=== PATIENT | male | born 2000 | race Caucasian/White ===

== ENCOUNTER 2023-08-01 12:26 | Emergency (ER) | payer OTHER, SELFPAY ==
[2023-08-01] VITALS (33 sets, daily range): BP systolic 116–152; BP diastolic 54–80; PULSE 65–89; RESP 24; TEMP 36.4; O2SAT 94–100
--- NOTE | 2023-08-01 12:30 | DI.CT_ITS ---
Exam(s) CT THORACIC LUMBAR SPINE WO CT CHEST WO EXAM: CT CHEST WO CLINICAL HISTORY: L upper rib pain, posterior TECHNIQUE: Imaging Protocol: Axial computed tomography images with coronal and sagittal reformatted images were created and reviewed CONTRAST MATERIAL: Noncontrast COMPARISON: CT CT THORACIC LUMBAR SPINE WO from 08/01/2023 FINDINGS: Noncontrast chest CT: Pulmonary parenchyma: Mild patchy densities in the left lower lobe and posterior right upper lobe. F indings could represent pneumonitis versus pulmonary contusion. No dominant measurable mass. Tracheobronchial tree: No bronchiectasis or mucous plugging. Mediastinum and Bridget: No dominant adenopathy or fluid collection. Pleura: No effusion. No pneumothorax. Heart: The heart is not dilated. No coronary artery calcifications are seen. No pericardial effusio n. Aorta: Thoracic aorta non-dilated. No atherosclerotic changes. Upper abdomen: No acute findings.. Soft tissues: Unremarkable. Bones: No rib fracture identified. No fracture identified involving visualized portions of the shoul ders. Thoracic spine CT: Minimal compression fracture of the anterior superior endplates of T3 and T4 which appear acute. No significant overall loss of vertebral body height. No posterior element fractures. No paraspinal he matoma. No gross evidence of hemorrhage within the central canal. Lumbar spine CT: No evidence of fracture. No paraspinal hematoma. The disc spaces are maintained. The alignment is normal. No degenerative changes. IMPRESSION: Chest CT: Patchy infiltrates in the left lower lobe and right upper lobe. Pneumonitis versus pulmona ry contusion. No evidence of rib fracture. Thoracic spine CT: Minimal compression fractures of the anterior superior endplates of T3 and T4. Lumbar spine CT: Negative. RADIATION DOSE DELIVERED: Total DLP DATA REPOSITORY: All CT scans at this facility are submitted to the National Radiology Data Registry (NRDR) Dose Index Registry (DIR) with the [employer] (A[employer]). RADIATION OPTIMIZATION: All CT scans at this facility use at least one of these dose optimization te chniques: automated exposure control; mA and/or kV adjustment per patient size (includes targeted exa ms where dose is matched to clinical indication); or iterative reconstruction.
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
[2023-08-01] MEDS: ACETAMINOPHEN 1,000 MG/100 ML BTL 400 MG IVPB (12:55)
[2023-08-01] MEDS: Ketorolac 15 MG/ML VIAL IVP (12:56)
[2023-08-01 13:03] LABS: Abs Immature Grans 0.09 10^3/uL (0.0-0.06); Absolute Basophil Count 0.02 10^3/uL (0.0-0.2); Absolute Eosinophil Count 0.07 10^3/uL (0.0-0.7); Absolute Lymphocyte Count 1.38 10^3/uL (1.2-3.4); Absolute Monocyte Count 0.73 10^3/uL (0.1-0.8); Absolute Neutrophil Count 7.75 10^3/uL (1.2-6.7); Basophils % 0.2; Eosinophils % 0.7; HCT 45.3 % (40.0-50.0); HGB 15.7 g/dL (13.5-17.5); Immature Grans % 0.9; Lymphocytes % 13.7; MCHC 34.7 % (32.0-36.0); MCV 92 fL (80-95); MPV 9.3 fL (8.0-11.0); Monocytes % 7.3; Neutrophils % 77.2; Platelet Count 195 10^3/uL (130-400); RDW 11.9 % (11.8-14.1); RDW-SD 41.1 fL; WBC 10.04 10^3/uL (4.4-10.8)
[2023-08-01 13:23] LABS: ALT 48 U/L (16-63); AST 28 U/L (15-37); Albumin 4.7 g/dL (3.4-5.0); Alkaline Phosphatase 110 U/L (46-116); Anion Gap 10.4 mmol/L (3-11); BUN 17 mg/dL (7-18); Bilirubin, Total 0.8 mg/dL (0.2-1.0); CO2 25.6 mmol/L (21.0-32.0); CREATININE 0.8 mg/dL (0.70-1.30); Chloride 103 mmol/L (98-107); Estimated GFR 127.53 (mL/min/1.73m2); Glucose 101 mg/dL (74-106); Lipase 12 U/L (16-77); Potassium 4.1 mmol/L (3.5-5.1); Sodium 139 mmol/L (136-145)
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
--- NOTE | 2023-08-01 14:45 | DI.CT_ITS ---
Exam(s) CT BRAIN NECK CTA EXAM: CT BRAIN NECK CTA CLINICAL HISTORY: ruleout cerebrovascular injury, trauma. TECHNIQUE: Imaging Protocol: Axial CT angiography was performed with multi-slice acquisition and mu lti-planar and MIP reconstructions. CONTRAST MATERIAL: Intravenous: Omnipaque 350 Contrast volume:100 ml COMPARISON: CT CT HEAD CERVICAL SPINE WO from 08/01/2023 FINDINGS: CT Head W contrast: Ventricles and Extra axial spaces: Normal in size and morphology for the patient's age. Hemorrhage: None. Cerebral parenchyma: No evidence of acute infarct or mass. Midline shift: None. Brainstem/Cerebellum: Low lying cerebellar tonsils. No acute findings. Linear high signal lesion in the left midbrain seen on noncontrast exam not visible on postcontrast imaging. Calvarium: Normal. Visualized Paranasal sinuses/Mastoids: Clear. Soft Tissues: Unremarkable. Enhancement: Normal. CTA Brain W: Internal Carotid Arteries: Petrous: Normal. Cavernous: Normal. Cerebral: Normal. Middle Cerebral Arteries: Right: No aneurysm, occlusion or significant stenosis. Left: No aneurysm, occlusion or significant stenosis. Anterior Cerebral Arteries: Right: No aneurysm, occlusion or significant stenosis. Left: No aneurysm, occlusion or significant stenosis. Posterior cerebral Arteries: Right: No aneurysm, occlusion or significant stenosis. Left: No aneurysm, occlusion or significant stenosis. Vertebral Arteries: Right: No aneurysm, occlusion or significant stenosis. Left: No aneurysm, occlusion or significant stenosis. Basilar Artery: No aneurysm, occlusion or significant stenosis. CTA Neck W: Common Carotid: Right: No dissection or evidence of vascular injury.. Left: No dissection or evidence of vascular injury. External Carotid: Right: No dissection or evidence of vascular injury. Left: No dissection or evidence of vascular injury. Internal Carotid: Right: No dissection or evidence of vascular injury. Left: No dissection or evidence of vascular injury. Vertebral Artery: Right: No dissection or evidence of vascular injury. Left: No dissection or evidence of vascular injury. Lung Apices: Normal. Bones: C6 and C7 fractures. See please see previous CT C-spine report. Soft Tissues: Normal. IMPRESSION: 1. CTA brain: Normal CTA examination of the [place]. 2. Head CT: Low lying cerebellar tonsils. No acute abnormality. 3. CTA neck: Normal CTA examination of the neck. No evidence of vascular injury. C6 and C7 fracture s. RADIATION DOSE DELIVERED: Total DLP DATA REPOSITORY: All CT scans at this facility are submitted to the National Radiology Data Registry (NRDR) Dose Index Registry (DIR) with the [employer] (A[employer]). RADIATION OPTIMIZATION: All CT scans at this facility use at least one of these dose optimization te chniques: automated exposure control; mA and/or kV adjustment per patient size (includes targeted exa ms where dose is matched to clinical indication); or iterative reconstruction.
[2023-08-01] MEDS: Normal Saline Flush 10 ML SYR IVP (15:10)
[2023-08-01] MEDS: Omnipaque 350 MG/ML 100 ML BTL IJ (15:17)
--- NOTE | 2023-08-01 15:40 | DI.VRAD_ITS ---
PROCEDURE INFORMATION: Exam: CTA Head With Contrast, Arteriography Exam date and time: 08/01/2023 3:05 PM Age: 23 years old Clinical indication: Other: R/O cerebrovascular injury, trauma TECHNIQUE: Imaging protocol: Computed tomographic angiography of the head with contrast. Exam focused on the arteries. 3D rendering (Not supervised by radiologist): MIP and/or 3D reconstructed images were created by the technologist. Contrast material: OMNI 350; Contrast volume: 100 ml; Contrast route: INTRAVENOUS (IV); COMPARISON: CT HEAD CERVICAL SPINE WO 08/01/2023 1:07 PM FINDINGS: ANTERIOR CIRCULATION: Right internal carotid artery: Intracranial segment is patent with no significant stenosis. No aneurysm. Right middle cerebral artery: No occlusion or significant stenosis. No aneurysm. Right anterior cerebral artery: No occlusion or significant stenosis. No aneurysm. Left internal carotid artery: Intracranial segment is patent with no significant stenosis. No aneurysm. Left middle cerebral artery: No occlusion or significant stenosis. No aneurysm. Left anterior cerebral artery: No occlusion or significant stenosis. No aneurysm. POSTERIOR CIRCULATION: Right vertebral artery: No occlusion or significant stenosis. No aneurysm. Left vertebral artery: No occlusion or significant stenosis. No aneurysm. Basilar artery: No occlusion or significant stenosis. No aneurysm. Right posterior cerebral artery: No occlusion or significant stenosis. No aneurysm. Left posterior cerebral artery: No occlusion or significant stenosis. No aneurysm. Brain: No definite mass, mass effect, or midline shift. Cerebral ventricles: No ventriculomegaly. Bones/joints: Unremarkable. No acute fracture. Soft tissues: Unremarkable. IMPRESSION: No large vessel stenosis or occlusion. PROCEDURE INFORMATION: Exam: CTA Neck With Contrast Exam date and time: 08/01/2023 3:05 PM Age: 23 years old Clinical indication: Other: R/O cerebrovascular injury, trauma TECHNIQUE: Imaging protocol: Computed tomographic angiography of the neck with contrast. Exam focused on the cervical segments of the vasculature. 3D rendering (Not supervised by radiologist): MIP and/or 3D reconstructed images were created by the technologist. Radiation optimization: All CT scans at this facility use at least one of these dose optimization techniques: automated exposure control; mA and/or kV adjustment per patient size (includes targeted exams where dose is matched to clinical indication); or iterative reconstruction. Contrast material: OMNI 350; Contrast volume: 100 ml; Contrast route: INTRAVENOUS (IV); COMPARISON: CT HEAD CERVICAL SPINE WO 08/01/2023 1:07 PM FINDINGS: Right common carotid artery: No stenosis. No dissection or occlusion. Right internal carotid artery: No stenosis of the extracranial segment. No dissection or occlusion. Right external carotid artery: No occlusion or stenosis of the origin. Left common carotid artery: No stenosis. No dissection or occlusion. Left internal carotid artery: No stenosis of the extracranial segment. No dissection or occlusion. Left external carotid artery: No occlusion or stenosis of the origin. Right vertebral artery: No stenosis. No dissection or occlusion. Left vertebral artery: No stenosis. No dissection or occlusion. Soft tissues: Normal. No significant soft tissue swelling. Bones/joints: C6 and C7 fractures. Please see report of CT cervical spine performed contemporaneously. IMPRESSION: 1. No evidence for arterial dissection. 2. C6 and C7 fractures. Please see report of CT cervical spine performed contemporaneously. REFERENCES: NASCET CRITERIA. The degree of stenosis in the cervical segment of the internal carotid artery is based on NASCET criteria. Normal is no stenosis. Mild is less than 50% stenosis. Moderate is 50-69% stenosis. Severe is 70% to 99% stenosis. Total occlusion is no detectable patent lumen. Dictated and Authenticated by: Baldo Oscar MD. Ordering:DAYSI Adam MD
== END 2023-08-01 15:53 | disposition short-term general hospital (02) ==
PROVIDERS: Emergency Provider Physician Assistant
DX: M54.6 Pain in thoracic spine (principal); M54.2 Cervicalgia; S12.500A Unspecified displaced fracture of sixth cervical vertebra, initial encounter for closed fracture; S22.030A Wedge compression fracture of third thoracic vertebra, initial encounter for closed fracture; S22.040A Wedge compression fracture of fourth thoracic vertebra, initial encounter for closed fracture; W19.XXXA Unspecified fall, initial encounter; V00.321A Fall from snow-skis, initial encounter
CPT/HCPCS: 70496; 70498; 71250; 80053; 83690; 96365; 96375; 99285; 70450; 72125; 72128; 72131; 85025; J0131; J1885; J3490